=== PATIENT | female | born 1960 | race Hispanic/Latino ===

== ENCOUNTER 2019-12-12 12:11 | Outpatient (CLI) | payer OTHER ==
--- NOTE | 2019-12-12 12:46 | RAD ---
Exam: Chest 2 views: HISTORY: Weight loss, incontinence of feces, hematochezia, internal hemorrhoids FINDINGS: Heart size is within normal limits. There are several small nodular densities project over the right midlung zone. There is evidence for old granulomatous calcifications. No focal mass. No pleural effusion. No evidence for pneumonia. IMPRESSION: Old granulomatous disease. Several small nodular densities over the right midlung zone along the level of the minor fissure. Con sideration for a follow-up chest CT scan is recommended for further assessment.
== END 2019-12-12 12:12 | disposition home or self-care (01) ==
LOC: SCSRAD 12:11
PROVIDERS: ATTEND Internal Medicine Gastroenterology
DX: K92.1 Melena (principal); R63.4 Abnormal weight loss; R15.9 Full incontinence of feces; K64.8 Other hemorrhoids; J98.4 Other disorders of lung
CPT/HCPCS: 71046